=== PATIENT | female | born 1960 | race Caucasian/White ===

== ENCOUNTER 2021-11-28 17:14 | Emergency (ER) | payer SELFPAY ==
[~2021-11-28] VITALS: Ht 167 cm; Wt 113.4 kg
[2021-11-28] MEDS ORDERED: EPINEPHrine 0.1 MG/ML 10 ML (HOSPIRA) SYR INJ ONE (17:18)
[2021-11-28] MEDS ORDERED: CALCIUM CHLORIDE 1 GM/10 ML (IMS) SYR INJ ONE (17:18)
[2021-11-28] MEDS ORDERED: SODIUM BICARB 8.4% 50 MEQ/50 ML (ABBOTT) SYR INJ ONE (17:18)
--- NOTE | 2021-11-28 17:50 | ED CPR ---
HPI-CPR General Chief Complaint: Code Blue Stated Complaint: CODE BLUE Source of Information: Patient Exam Limitations: No Limitations History of Present Illness Date Seen by Provider: Nov 28, 2021 Time Seen by Provider: 17:10 Initial Comments Patient presents ER by EMS with CODE BLUE and CPR on route. EMS was called for severe shortness of breath. outpatient receptionist's arrived and stated they had a witnessed arrest in front of them put an AED on her and delivered 4 shocks as well as CPR. An LMA was placed by EMS and 1/5 round of shocks was given. After that they had asystole on route. She had a IO placed, fluids started. She has a history of leukemia, CHF, hypertension and diabetes. She received 1 mg of epinephrine by EMS on route. Family remarks that she has been feeling a little under the weather the past couple days and was due to go for chemotherapy but they noted her kidney function was poor. She was placed to go into the doctor on Tuesday but she did not feel up to going so she stayed home. She has not been tested for Covid or flu recently. She was not complaining of cough, dysuria, diarrhea or fever. She did not have any end-of-life planning that the son was aware of. The son states she has coded twice before in the last couple months. Primary care out of [place], [place] Allergies and Home Medications Patient Home Medication List Home Medication List Reviewed: Yes Review of Systems Review of Systems Constitutional: see HPI (Review of systems limited to what we can get from the son); No chills, No diaphoresis EENTM: No Blurred Vision, No Double Vision Respiratory: Denies Cough; Shortness of Air, SOA With Exertion, SOA at Rest Cardiovascular: Denies Chest Pain, Denies Lightheadedness All Other Systems Reviewed Negative Unless Noted: Yes Past [id number] Hx Patient Social History Tobacco Use?: No Use of E-Cig and/or Vaping dev: No Substance use?: No Physical Exam Vital Signs Capillary Refill : Height, Weight, BMI Height: '" Weight: lbs. oz. kg; BMI Method: General Appearance: Chronically ill, Obese, Severe Distress HEENT: No PERRL/EOMI (Pupils fixed 3 mm bilateral symmetric); Other (Oropharynx filled with emesis and an LMA) Neck: Normal Inspection, Supple Respiratory: Other (Ventilation with a bag and LMA unable to obtain an oxygen sat initially) Cardiovascular: Other (Cardiopulmonary arrest with CPR ongoing, no edema in her bilateral lower extremities. Capillary refill indefinite) Extremity: No Pedal Edema Neurologic/Psychiatric: Other (GCS 3 T, cardiopulmonary arrest) Skin: Cool, Pallor Procedures/Interventions Reason for Intubation: Cardiopulmonary Date of ETT Placement: Nov 28, 2021 Time of ETT Placement: 17:21 Intubation Method: orotracheal Tube Size: 7.5 Positive End Tide CO2: Yes Breath Sounds after Intubation: bilateral-equal Intubation Complications: apparent aspiration Post Intubation Xray: No Aggressive suctioning with Yunker followed by intubation. Would not see direct aspiration however if she had emesis all throughout her orotracheal airway. Domingo vision 3 used. We were able to see 100% of the vocal cords and easily pass an ET tube with a channel and secured place at 22 at the teeth. Progress/Results/Core Measures Results/Orders My Orders Orders - CHANTELL ARRIETA Influenza A And B By Pcr (11/28/21 17:50) Coronavirus Sars-Cov-2 So 2019 (11/28/21 17:50) Progress Progress Note : Time: 18:00 Critical Care Note Critical Care Start Time: 17:16 Stop Time: 17:30 Total Time (minutes) 14 minutes Date of : Nov 28, 2021 Time of : 17:30 Progress Patient presents the ER and cardiopulmonary arrest with CPR ongoing by EMS and LMA in place. I attest to 14 minutes of critical care time outside of intubation managing family family expectations and end-of-life expectations. The patient had received 2 doses of epinephrine en route by EMS and a total of 5 shocks. Epinephrine was given at 1718 by us after arrival through her IO. Patient was reported to have gone down at 1649 witnessed by first responders, firefighters. 1721 pulse check revealed no pulse. 7.5 ET tube was placed 22 at the teeth with positive color change, 81% pulse ox 122/28 blood pressure. Compressions continued. Bilateral breath sounds were symmetrically auscultated. 1724 epinephrine was delivered. 1725 calcium chloride was given. 1725 bicarbonate 1 amp was given IV. 1726 sats were 89%. Pulse check demonstrated asystole no pulse. 1728 epinephrine 1 mg was given. 1730 no pulse and resuscitative efforts were called. 173 physician met with family and discussed their questions. 180 pastoral care arrived to discuss questions with family. Departure Impression Primary Impression: Cardiopulmonary arrest Additional Impression: Disposition: 20 Condition: Departure-Patient Inst. Decision time for Depature: 18:08 Referrals: NO,LOCAL PHYSICIAN (PCP/Family) Primary Care Physician Patient Instructions: Sudden Cardiac Arrest Add. Discharge Instructions: All discharge instructions reviewed with patient and/or family. Voiced understanding. CHANTELL ARRIETA Nov 28, 2021 17:50
== END 2021-11-28 19:38 | disposition expired ==
LOC: ER 17:17
DX: I46.9 Cardiac arrest, cause unspecified (principal); U07.1 COVID-19; I11.0 Hypertensive heart disease with heart failure; I50.9 Heart failure, unspecified; E11.9 Type 2 diabetes mellitus without complications; E66.9 Obesity, unspecified
CPT/HCPCS: 31500; 36680; 87635; 87804